=== PATIENT | male | born 1970 | race Caucasian/White ===

== ENCOUNTER 2021-03-27 13:56 | Observation (INO) ==
[2021-03-27] MEDS ORDERED: *HR* FentaNYL (PF) 100 MCG/2 ML VIAL IVP ONE (15:31)
[2021-03-27] MEDS ORDERED: Ondansetron 4 MG/2 ML VIAL IVP ONE (15:31)
[2021-03-27] MEDS ORDERED: *HR* Propofol 200 MG/20 ML VIAL IVP ONE (15:32)
[2021-03-27 15:38] LABS: Eosinophils % 0.3 %; Immature Granulocytes % 0.3 % (0-4); Mean Platelet Volume 10.9 fL (9.4-12.4)
[2021-03-27 15:40] LABS: Basophils % 0.9 %; Hematocrit 42.7 % (37.5-50.1); Hemoglobin 14.4 g/dL (12.9-16.9); Immature Platelets 8.5 % (1.1-6.1); Lymphocytes % 30.3 %; Mean Corpuscular HGB Conc 33.7 g/dL (31.6-35.5); Mean Corpuscular Hemoglobin 34.6 pg (28.0-33.3); Mean Corpuscular Volume 102.6 fL (83.0-100.0); Monocytes # 0.4 K/mcL (0.0-1.3); Monocytes % 11.6 %; Neutrophils # 1.9 K/mcL (1.6-8.9); Platelet Count 80 K/mcL (140-400); Red Blood Count 4.16 M/mcL (4.19-5.50); Red Cell Distribution Width 12.1 % (11.5-14.5); Segmented Neutrophils % 56.6 %; White Blood Count 3.3 K/mcL (4.3-11.1)
[2021-03-27 15:57] LABS: BUN/Creatinine Ratio 7 (6-26); Blood Urea Nitrogen 5 mg/dL (6-20); Carbon Dioxide 23 mEq/L (23-29); Chloride 102 mEq/L (98-107); Glucose 112 mg/dL (70-105); Osmolality,Calculated 282 (280-300); Potassium 4.1 mEq/L (3.5-5.1); Sodium 137 mEq/L (136-145); eGFR For African Americans > 60 (> 60); eGFR For Non-African Americans > 60 (> 60)
[2021-03-27] MEDS ORDERED: 0.9 % Sodium Chloride 1,000 ML ONE (16:00)
[2021-03-27] MEDS ORDERED: 0.9 % Sodium Chloride 1,000 ML IV ONE (16:03)
[2021-03-27] MEDS ORDERED: Naloxone 0.4 MG/ML INJ IVP PRN (16:20)
[2021-03-27] MEDS ORDERED: Melatonin 3 MG TABLET PO PRN (16:20)
[2021-03-27] MEDS ORDERED: Acetaminophen 325 MG TABLET PO PRN (16:43)
[2021-03-27] MEDS ORDERED: *HR* LORazepam 2 MG/ML VIAL IVP PRN ×3 (16:47)
[2021-03-27] MEDS ORDERED: Thiamine (B-1) 100 MG, Folic Acid 1 MG, MVI, adult with vitamin K 10 ML in 0.9 % Sodi... IVPB ONE (16:47)
[2021-03-27 17:03] LABS: Ethanol 230 mg/dL (Less than 10)
[2021-03-27 17:49] LABS: Alanine Aminotransferase 36 Units/L (7-52); Albumin 3.9 g/dL (3.5-5.7); Albumin/Globulin Ratio 1.2 (1.1-2.2); Alkaline Phosphatase 90 Units/L (34-104); Aspartate Amino Transferase 56 Units/L (13-39); Bilirubin,Direct 0.1 mg/dL (0.0-0.2); Bilirubin,Indirect 0.2 mg/dL (0.0-1.0); Bilirubin,Total 0.3 mg/dL (0.3-1.0); Globulin 3.3 g/dL (2.4-3.5); Total Protein 7.2 g/dL (6.4-8.9)
[2021-03-27 17:52] LABS: Amphetamine Screen,Urine Negative ng/mL (Cutoff=1000); Barbiturate Screen,Urine Negative ng/mL (Cutoff=200); Benzodiazepines Screen,Urine Negative ng/mL (Cutoff=200); Cannabinoid Screen,Urine Positive ng/mL (Cutoff = 50); Cocaine Screen,Urine Negative ng/mL (Cutoff= 300); Opiate Screen,Urine Negative ng/mL (Cutoff=300); Phencyclidine Screen,Urine Negative ng/mL (Cutoff=25)
[2021-03-28] MEDS ORDERED: *HR* Enoxaparin 40 MG/0.4 ML SYRINGE SQ SCH (06:00)
[2021-03-28 06:50] LABS: Eosinophils % 0.2 %; Immature Granulocytes % 0.2 % (0-4); Mean Corpuscular HGB Conc 34.5 g/dL (31.6-35.5)
[2021-03-28 06:52] LABS: Basophils % 0.2 %; Hematocrit 39.4 % (37.5-50.1); Hemoglobin 13.6 g/dL (12.9-16.9); Immature Platelets 9.3 % (1.1-6.1); Lymphocytes # 0.8 K/mcL (0.6-4.6); Lymphocytes % 16.7 %; Mean Corpuscular Volume 101.3 fL (83.0-100.0); Mean Platelet Volume 11.3 fL (9.4-12.4); Monocytes # 0.4 K/mcL (0.0-1.3); Monocytes % 7.4 %; Red Blood Count 3.89 M/mcL (4.19-5.50); Red Cell Distribution Width 12.1 % (11.5-14.5); Segmented Neutrophils % 75.3 %; White Blood Count 4.7 K/mcL (4.3-11.1)
[2021-03-28 06:56] LABS: Neutrophils # 3.5 K/mcL (1.6-8.9); Platelet Count 71 K/mcL (140-400); Prothrombin Time 11.7 Seconds (9.4-12.1)
[2021-03-28 07:06] LABS: BUN/Creatinine Ratio 8 (6-26); Blood Urea Nitrogen 5 mg/dL (6-20); Calcium 8.7 mg/dL (8.6-10.3); Carbon Dioxide 25 mEq/L (23-29); Chloride 104 mEq/L (98-107); Glucose 106 mg/dL (70-105); Osmolality,Calculated 280 (280-300); Potassium 3.9 mEq/L (3.5-5.1); Sodium 136 mEq/L (136-145); eGFR For African Americans > 60 (> 60); eGFR For Non-African Americans > 60 (> 60)
[2021-03-28] MEDS ORDERED: *HR* OxyCODONE Immed Rel 5 MG TABLET PO PRN (08:09)
[2021-03-28] MEDS ORDERED: *HR* HYDROmorphone PF 0.5 MG/0.5 ML SYRINGE IVP PRN (08:09)
[2021-03-28] MEDS ORDERED: *HR* Midazolam HCl 2 MG/2 ML VIAL IVP PRN ×2 (08:09→18:22)
[2021-03-28] MEDS ORDERED: *HR* FentaNYL (PF) 100 MCG/2 ML VIAL IVP PRN (08:09)
[2021-03-28] MEDS ORDERED: Vitamin B Complex/Vit C/Vit E 1 EACH TABLET PO SCH (09:00)
[2021-03-28] MEDS ORDERED: Nicotine 21 MG PATCH.TD24 TD SCH ×2 (09:00→18:45)
[2021-03-28] MEDS ORDERED: Thiamine (B-1) 100 MG TABLET PO SCH (09:00)
[2021-03-28] MEDS ORDERED: Folic Acid 1 MG TABLET PO SCH (09:00)
[2021-03-28] MEDS ORDERED: *HR* Propofol 200 MG/20 ML VIAL IVP ONE (14:55)
[2021-03-28] MEDS ORDERED: *HR* FentaNYL (PF) 100 MCG/2 ML VIAL ONE (14:57)
[2021-03-28] MEDS ORDERED: *HR* Midazolam HCl 2 MG/2 ML VIAL ONE (14:57)
[2021-03-28] MEDS ORDERED: CeFAZolin Syr 2,000MG/20 ML 2,000 MG/20 ML SYRINGE IVPB ONE (15:13)
[2021-03-28] MEDS ORDERED: Bupivacaine/EPI 1:200k 0.25% 50 ML VIAL ONE (15:18)
[2021-03-28] MEDS ORDERED: ceFAZolin 2,000 MG in 0.9 % Sodium Chloride 100 ML IVPB SCH (16:00)
[2021-03-28] MEDS ORDERED: Melatonin 3 MG TABLET PO PRN (18:22)
[2021-03-28] MEDS ORDERED: Acetaminophen 325 MG TABLET PO PRN (18:22)
[2021-03-28] MEDS ORDERED: *HR* LORazepam 2 MG/ML VIAL IVP PRN ×3 (18:22)
[2021-03-28] MEDS ORDERED: Naloxone 0.4 MG/ML INJ IVP PRN (18:22)
[2021-03-28] MEDS ORDERED: Ondansetron 4 MG/2 ML VIAL IVP PRN (18:29)
[2021-03-28] MEDS: CeFAZolin 2,000 MG/120 ML BAG IVPB SCH (23:46)
[2021-03-29] MEDS ORDERED: *HR* Enoxaparin 40 MG/0.4 ML SYRINGE SQ SCH (06:00)
[2021-03-29 07:52] LABS: Hemoglobin 13.5 g/dL (12.9-16.9); Mean Corpuscular Volume 100.5 fL (83.0-100.0)
[2021-03-29 07:54] LABS: Hematocrit 38.7 % (37.5-50.1); Immature Platelets 12.6 % (1.1-6.1); Mean Corpuscular HGB Conc 34.9 g/dL (31.6-35.5); Mean Corpuscular Hemoglobin 35.1 pg (28.0-33.3); Mean Platelet Volume 11.7 fL (9.4-12.4); Red Blood Count 3.85 M/mcL (4.19-5.50); Red Cell Distribution Width 11.7 % (11.5-14.5); White Blood Count 7.4 K/mcL (4.3-11.1)
[2021-03-29] MEDS: CeFAZolin 2,000 MG/120 ML BAG IVPB SCH (08:15)
[2021-03-29 08:17] LABS: BUN/Creatinine Ratio 11 (6-26); Blood Urea Nitrogen 7 mg/dL (6-20); Carbon Dioxide 26 mEq/L (23-29); Chloride 97 mEq/L (98-107); Glucose 124 mg/dL (70-105); Osmolality,Calculated 273 (280-300); Potassium 3.5 mEq/L (3.5-5.1); Sodium 132 mEq/L (136-145); eGFR For African Americans > 60 (> 60); eGFR For Non-African Americans > 60 (> 60)
[2021-03-29] MEDS ORDERED: Folic Acid 1 MG TABLET PO SCH (09:00)
[2021-03-29] MEDS ORDERED: Thiamine (B-1) 100 MG TABLET PO SCH (09:00)
[2021-03-29] MEDS ORDERED: Vitamin B Complex/Vit C/Vit E 1 EACH TABLET PO SCH (09:00)
[2021-03-29 15:55] VITALS: BP 145/91; PULSE 103; TEMP 97.9; O2SAT 98
== END 2021-03-29 18:05 | disposition home or self-care (01) ==
LOC: 3NENU 13:56 → EMEROOARM 13:56 → SUATTDRO 16:55 → 3NENU 18:00
PROVIDERS: ADMIT Internal Medicine; ATTEND Internal Medicine